=== PATIENT | male | born 1985 | race Hispanic/Latino ===

== ENCOUNTER 2018-06-25 08:23 | Inpatient (IN) | payer OTHER ==
--- NOTE | 2018-06-25 08:58 | C.PDOC ---
History Of Present Illness 32 years old male presents to ED stating that he inserted a dark janee plug in his rectum today and the handle broke off and he was unable to retrieve it. Denies bleeding, abdominal pain, nausea, or vomiting. Time Seen by Provider: 06/25/18 08:36 Chief Complaint (Nursing): Foreign Body History Per: Patient History/Exam Limitations: no limitations Onset/Duration Of Symptoms: Hrs Recent travel outside of the [place]: No Past Medical History Reviewed: Historical Data, Nursing Documentation, Vital Signs Vital Signs: Last Vital Signs Temp 97.7 F 06/25/18 08:27 Pulse 100 H 06/25/18 08:27 Resp 18 06/25/18 08:27 BP 126/87 06/25/18 08:27 Pulse Ox 98 06/25/18 08:27 - Medical History PMH: No Chronic Diseases Surgical History: No Surg Hx Family History: States: No Known Family Hx - Social History Hx Alcohol Use: Yes Hx Substance Use: Yes - Immunization History Hx Tetanus Toxoid Vaccination: No Hx Influenza Vaccination: No Hx Pneumococcal Vaccination: No Review Of Systems Constitutional: Negative for: Fever, Chills Gastrointestinal: Positive for: Other (sext toy stuck in rectum ). Negative for: Nausea, Vomiting, Abdominal Pain Skin: Negative for: Rash Neurological: Negative for: Weakness, Numbness Physical Exam - Physical Exam Appears: Non-toxic, No Acute Distress Skin: Normal Color, Warm, Dry, No Rash Head: Atraumatic, Normacephalic Eye(s): bilateral: Normal Inspection, PERRL, EOMI Oral Mucosa: Moist Neck: Normal ROM, Supple Chest: Symmetrical, No Tenderness Cardiovascular: Rhythm Regular Respiratory: Normal Breath Sounds, No Rales, No Rhonchi, No Wheezing Gastrointestinal/Abdominal: Soft, No Tenderness Rectal: No Hemorrhoids, Other (Foreign body palpated at 7cm aboce rectum. Unable to retrieve by manual pull. No bleeding. ) Extremity: Normal ROM Extremity: Bilateral: Atraumatic, Normal Color And Temperature, Normal ROM Pulses: Left Radial: Normal, Right Radial: Normal Neurological/Psych: Oriented x3, Normal Speech, Normal Motor, Normal Sensation Gait: Steady ED Course And Treatment - Laboratory Results Result Diagrams: 06/25/18 10:18 06/25/18 10:18 Lab Interpretation: No Acute Changes ECG: Interpreted By Me ECG Rhythm: Sinus Rhythm ECG Interpretation: No Acute Changes Rate From EC O2 Sat by Pulse Oximetry: 98 (RA) Pulse Ox Interpretation: Normal Medical Decision Making Medical Decision Making: Plan: * Pelvis X-Ray * Paged Nelson Miguel (GI director of clinical education). 9:29AM: * Spoke with Nelson Miguel who requested for patient to be admitted to medicine and will do colonoscopy today. Re-evaluation: * Patient states last water intake today was at 8AM. * Patient states he did not eat anything today. 9:40AM: * Spoke to Eusebia Downey (Medicine director of clinical education) who accepted the patient. Disposition Counseled Patient/Family Regarding: Studies Performed, Diagnosis - Disposition Disposition: HOSPITALIZED Disposition Time: 09:41 Condition: STABLE - Clinical Impression Clinical Impression: Rectal foreign body - PA / HOSPITALITY ASSOCIATE / Resident Statement MD/DO has reviewed & agrees with the documentation as recorded. - Scribe Statement The provider has reviewed the documentation as recorded by the Scribe Amanda Bustillos All medical record entries made by the Scribe were at my direction and personally dictated by me. I have reviewed the chart and agree that the record accurately reflects my personal performance of the history, physical exam, medical decision making, and the department course for this patient. I have also personally directed, reviewed, and agree with the discharge instructions and disposition. Decision To Admit - Pt Status Changed To: Hospital Disposition Of: SDS- Endo,OR,Cath,IR - . Bed Request Type: Same Day Surgery Admitting Physician: Rory Devlin Patient Diagnosis: Rectal foreign body
[2018-06-25] MEDS ORDERED: Sodium Chloride 0.9% 1,000 ML IV ONE (09:35)
[2018-06-25 10:26] LABS: BASO % 0.6 % (0.0-2.0); EOS % 0.6 % (0.0-4.0); HEMOGLOBIN 13.6 g/dL (12.0-18.0); LYMPH # 0.8 K/uL (1.0-4.3); LYMPH % 16.6 % (20.0-40.0); MEAN CELL VOLUME 91.7 fL (80.0-94.0); MEAN CORPUSCULAR HEMOGLOBIN 32.2 pg (27.0-31.0); MEAN CORPUSCULAR HGB CONC 35.2 g/dL (33.0-37.0); MEAN PLATELET VOLUME 7.4 fL (7.2-11.7); MONO # 0.4 K/uL (0.0-0.8); MONO % 7.5 % (0.0-10.0); NEUT # 3.6 K/uL (1.8-7.0); NEUT % 74.7 % (50.0-75.0); NRBC % 0.1 % (0.0-2.0); RBC 4.21 Mil/uL (4.40-5.90); RED CELL DISTRIBUTION WIDTH 12.3 % (11.5-14.5); WHITE BLOOD COUNT 4.8 K/uL (4.8-10.8)
[2018-06-25 10:35] LABS: INR 1.1; PROTHROMBIN TIME 11.6 SECONDS (9.7-12.2)
[2018-06-25 10:57] LABS: ALB/GLOB RATIO 2.1 (1.0-2.1); ALBUMIN 4.6 g/dL (3.5-5.0); ALT/SGPT 23 U/L (21-72); AST/SGOT 32 U/L (17-59); BLOOD UREA NITROGEN 13 mg/dL (9-20); CALCIUM 8.9 mg/dl (8.6-10.4); GFR NON-AFRICAN AMERICAN > 60
[2018-06-25] MEDS ORDERED: Propofol 10 mg/ml Inj (20 ML) ONE ×3 (11:01→14:38)
[2018-06-25] MEDS ORDERED: Midazolam 2 MG/2 ML VIAL ONE ×2 (11:16→14:37)
--- NOTE | 2018-06-25 11:46 | CP.PCM.CON ---
History of Present Illness - History of Present Illness History of Present Illness: This is a 32 year old man with rectal foreign body. Patient inserted a sex toy shaped as a ball with a triangle on top in to the rectum this morning. The handle broke off, and the ball remained in the rectum. He denied having nausea, vomiting, abdominal pain, rectal bleeding on admissioin. Review of Systems - Constitutional Constitutional: absent: Chills, Fever - Gastrointestinal Gastrointestinal: absent: Abdominal Pain, Hematochezia, Nausea, Vomiting Past Patient History - Past Social History Smoking Status: Never Smoked - PSYCHIATRIC Hx Substance Use: Yes - SURGICAL HISTORY Hx Surgeries: No Meds Allergies/Adverse Reactions: Allergies Allergy/AdvReac Type Severity Reaction Status Date / Time No Known Allergies Allergy Verified 06/25/18 08:29 Physical Exam - Constitutional Appears: No Acute Distress - Head Exam Head Exam: ATRAUMATIC, NORMOCEPHALIC - Neck Exam Neck exam: Negative for: Lymphadenopathy, Thyromegaly - Respiratory Exam Respiratory Exam: NORMAL BREATHING PATTERN. absent: Rales, Rhonchi, Wheezes - Cardiovascular Exam Cardiovascular Exam: REGULAR RHYTHM, +S1, +S2. absent: Gallop, Rubs, Systolic Murmur - GI/Abdominal Exam GI & Abdominal Exam: Normal Bowel Sounds, Soft. absent: Mass, Organomegaly, Tenderness - Rectal Exam Rectal Exam: Deferred - Extremities Exam Extremities exam: Negative for: calf tenderness, pedal edema Results - Vital Signs Recent Vital Signs: Last Vital Signs Temp 98.2 F 06/25/18 10:56 Pulse 68 06/25/18 10:56 Resp 16 06/25/18 10:56 BP 116/77 06/25/18 10:56 Pulse Ox 100 06/25/18 10:56 - Labs Result Diagrams: 06/25/18 10:18 06/25/18 10:18 Labs: Laboratory Results - last 24 hr 06/25/18 06/25/18 06/25/18 10:18 10:18 10:18 WBC 4.8 RBC 4.21 L Hgb 13.6 Hct 38.6 MCV 91.7 MCH 32.2 H MCHC 35.2 RDW 12.3 Plt Count 199 MPV 7.4 Neut % (Auto) 74.7 Lymph % (Auto) 16.6 L [place] % (Auto) 7.5 Eos % (Auto) 0.6 Baso % (Auto) 0.6 Neut # (Auto) 3.6 Lymph # (Auto) 0.8 L [place] # (Auto) 0.4 Eos # (Auto) 0.0 Baso # (Auto) 0.0 PT 11.6 INR 1.1 APTT 30 Sodium 139 Potassium 4.0 Chloride 103 Carbon Dioxide 25 Anion Gap 15 BUN 13 Creatinine 0.8 Est GFR ( Amer) > 60 Est GFR (Non-Af Amer) > 60 Random Glucose 91 Calcium 8.9 Total Bilirubin 1.3 AST 32 ALT 23 Alkaline Phosphatase 21 L Total Protein 6.7 Albumin 4.6 Globulin 2.2 Albumin/Globulin Ratio 2.1 Assessment & Plan (1) Rectal foreign body Assessment and Plan: Patient has a rectal foreign body. Will attempt removal by colonoscopy. Status: Acute
--- NOTE | 2018-06-25 13:03 | CP.PCM.CON ---
History of Present Illness - History of Present Illness History of Present Illness: General surgery progress note for Dr. Bhat Pt is a 32M who denies any PMH or PSH who states that this AM patient and his inserted a black, rubber rectal dilator into his rectum, and the handle to retrieve the dilator broke off. Pt tried to digitally remove the object, but was unable to do so, so he came to the ER. GI was consulted and attempted a removal via colonoscopy, which was unsuccessful. Patient was examined approximately 4 hours after insertion. He reports an extreme urge to defecate, but no rectal or abdominal pain, no bleeding per rectum, no fevers, chills, chest pain, nausea, or vomiting. Patient denies any personal or family history of GI issues and has never had a colonoscopy. Last BM was this AM just prior to object insetion and it was normal in caliber and color, no melena or hematochezia PMH: denies PSH: denies ALL: denies social: daily inhaled marijuana use, denies smoking, occasional ETOH Review of Systems - Review of Systems All systems: reviewed and no additional remarkable complaints except (as per HPI) Past Patient History - Past Medical History & Family History Past Medical History?: Yes Past Family History: Reviewed and not pertinent - Past Social History Smoking Status: Never Smoked Alcohol: Occasional Drugs: Cannabis Home Situation {Lives}: With Family - PSYCHIATRIC Hx Substance Use: Yes - SURGICAL HISTORY Hx Surgeries: No Meds Allergies/Adverse Reactions: Allergies Allergy/AdvReac Type Severity Reaction Status Date / Time No Known Allergies Allergy Verified 06/25/18 08:29 - Medications Medications: Current Medications Lactated Ringer's (Lactated Ringer's) 1,000 mls @ 125 mls/hr IV .Q8H [facility] Morphine Sulfate (Morphine) 2 mg IVP Q4 PRN PRN Reason: Pain, moderate (4-7) Physical Exam - Constitutional Appears: Well, Non-toxic, No Acute Distress - Head Exam Head Exam: ATRAUMATIC, NORMOCEPHALIC - Eye Exam Eye Exam: Normal appearance. absent: Conjunctival injection, Scleral icterus - ENT Exam ENT Exam: Mucous Membranes Moist, Normal Oropharynx - Respiratory Exam Respiratory Exam: NORMAL BREATHING PATTERN. absent: Accessory Muscle Use, Respiratory Distress - Cardiovascular Exam Cardiovascular Exam: RRR - GI/Abdominal Exam GI & Abdominal Exam: Soft. absent: Distended, Rebound, Tenderness - Rectal Exam Additional comments: No active external bleeding, no external lesions, normal sphinter tone, round object palpated approximately 5cm from the anal verge, unable to be retracted, small amount of gross blood on the glove - Extremities Exam Extremities exam: Positive for: pedal pulses present. Negative for: calf tenderness, pedal edema - Neurological Exam Neurological exam: Alert, Oriented x3 - Psychiatric Exam Psychiatric exam: Normal Affect, Normal Mood - Skin Skin Exam: Dry, Normal Color, Warm Results - Vital Signs Recent Vital Signs: Last Vital Signs Temp 97 F L 06/25/18 12:45 Pulse 60 06/25/18 12:45 Resp 17 06/25/18 12:45 BP 115/71 06/25/18 12:45 Pulse Ox 100 06/25/18 12:45 - Labs Result Diagrams: 06/25/18 10:18 06/25/18 10:18 Labs: Laboratory Results - last 24 hr 06/25/18 06/25/18 06/25/18 10:18 10:18 10:18 WBC 4.8 RBC 4.21 L Hgb 13.6 Hct 38.6 MCV 91.7 MCH 32.2 H MCHC 35.2 RDW 12.3 Plt Count 199 MPV 7.4 Neut % (Auto) 74.7 Lymph % (Auto) 16.6 L [place] % (Auto) 7.5 Eos % (Auto) 0.6 Baso % (Auto) 0.6 Neut # (Auto) 3.6 Lymph # (Auto) 0.8 L [place] # (Auto) 0.4 Eos # (Auto) 0.0 Baso # (Auto) 0.0 PT 11.6 INR 1.1 APTT 30 Sodium 139 Potassium 4.0 Chloride 103 Carbon Dioxide 25 Anion Gap 15 BUN 13 Creatinine 0.8 Est GFR ( Amer) > 60 Est GFR (Non-Af Amer) > 60 Random Glucose 91 Calcium 8.9 Total Bilirubin 1.3 AST 32 ALT 23 Alkaline Phosphatase 21 L Total Protein 6.7 Albumin 4.6 Globulin 2.2 Albumin/Globulin Ratio 2.1 Blood Type Antibody Screen 06/25/18 10:18 WBC RBC Hgb Hct MCV MCH MCHC RDW Plt Count MPV Neut % (Auto) Lymph % (Auto) [place] % (Auto) Eos % (Auto) Baso % (Auto) Neut # (Auto) Lymph # (Auto) [place] # (Auto) Eos # (Auto) Baso # (Auto) PT INR APTT Sodium Potassium Chloride Carbon Dioxide Anion Gap BUN Creatinine Est GFR ( Amer) Est GFR (Non-Af Amer) Random Glucose Calcium Total Bilirubin AST ALT Alkaline Phosphatase Total Protein Albumin Globulin Albumin/Globulin Ratio Blood Type A POSITIVE Antibody Screen Negative - Imaging and Cardiology Abdominal x-ray Status: Image reviewed by me, Report reviewed by me Chest x-ray Status: Image reviewed by me, Report reviewed by me CT scan - abdomen Status: Image reviewed by me, Report reviewed by me Assessment & Plan - Assessment and Plan (Free Text) Assessment: 32M with retained foreign body in the rectum Plan: OR for EUA and attempted removal of foreign body NPO IVF PRN pain and nausea medication IV antibiotics Discussed with Dr. Perlita Zarate, PGY2
--- NOTE | 2018-06-25 13:54 | CT ---
Date of service: 06/25/2018 PROCEDURE: CT Abdomen and Pelvis with Oral contrast. HISTORY: Rectal foreign body COMPARISON: None. TECHNIQUE: Contiguous axial images of the abdomen and this without oral or IV contrast. Coronal and Sagittal reformats generated. Radiation dose: Total exam DLP = 289.13 mGy-cm. This CT exam was performed using one or more of the following dose reduction techniques: Automated exposure control, adjustment of the mA and/or kV according to patient size, and/or use of iterative reconstruction technique. FINDINGS: LOWER THORAX: Unremarkable. LIVER: Unremarkable. No gross lesion or ductal dilatation. GALLBLADDER AND BILE DUCTS: Unremarkable. PANCREAS: Unremarkable. No mass. No ductal dilatation. SPLEEN: Unremarkable. No splenomegaly. ADRENALS: Unremarkable. KIDNEYS AND URETERS: Unremarkable. No stone or hydronephrosis. BLADDER: Grossly unremarkable. REPRODUCTIVE: Unremarkable. APPENDIX: Unremarkable. BOWEL: Evaluation of the bowel is somewhat limited due to the lack of oral contrast material. There is a somewhat peanut shaped radiolucent (fat like attenuation pattern with Hounsfield units registering in the negative 90s) foreign body within the rectum and distal sigmoid region that measures approximately 9.4 x 4.5 cm in greatest CC and transverse dimension.. Stomach is collapsed. Visualized loops of small bowel exhibit normal contour and caliber. No evidence of acute mechanical small bowel obstruction. PERITONEUM: Unremarkable. No fluid collection. No free air. LYMPH NODES: Unremarkable. No enlarged lymph nodes. VASCULATURE: Unremarkable. No aortic aneurysm. No aortic atherosclerotic calcification or mural plaque present. BONES: No fracture or destructive lesion. OTHER FINDINGS: None. IMPRESSION: There is a somewhat peanut shaped radiolucent (fat like attenuation pattern with Hounsfield units registering in the negative 90s) foreign body within the rectum and distal sigmoid region that measures approximately 9.4 x 4.5 cm in greatest CC and transverse dimension... No evidence of free intraperitoneal air.. No of free or loculated fluid collections. No obvious pneumatosis. These findings discussed with Dr. Dale at approximately 1:45 p.m. with written down and read back verification.
--- NOTE | 2018-06-25 14:11 | RAD ---
Date of service: 06/25/2018 HISTORY: pre-op COMPARISON: None available. FINDINGS: LUNGS: No active pulmonary disease. PLEURA: No significant pleural effusion identified, no pneumothorax apparent. CARDIOVASCULAR: No aortic atherosclerotic calcification present. Normal cardiac size. No pulmonary vascular congestion. OSSEOUS STRUCTURES: No significant abnormalities. VISUALIZED UPPER ABDOMEN: Normal. OTHER FINDINGS: None. IMPRESSION: No active disease.
--- NOTE | 2018-06-25 14:12 | RAD ---
Date of service: 06/25/2018 PROCEDURE: Radiographs of the pelvis. HISTORY: RECTAL FB COMPARISON: None. FINDINGS: BONES: Pelvic Bones: Unremarkable. Hips: Grossly unremarkable. JOINTS: Sacroiliac Joints: Unremarkable. Pubic Symphysis: Unremarkable. OTHER FINDINGS: There is a rounded approximately 5.9 cm radiolucent the focus seen overlying the mid inferior half of the true pelvis that could represent a foreign body. Follow-up of CT scan of the pelvis recommended IMPRESSION: Suspect radiolucent foreign body overlying the mid inferior half of the true pelvis. Follow-up CT scan recommended
--- NOTE | 2018-06-25 14:17 | CP.PCM.HP ---
Past Patient History - Past Social History Smoking Status: Never Smoked - PSYCHIATRIC Hx Substance Use: Yes - SURGICAL HISTORY Hx Surgeries: No Meds Allergies/Adverse Reactions: Allergies Allergy/AdvReac Type Severity Reaction Status Date / Time No Known Allergies Allergy Verified 06/25/18 08:29 Physical Exam - Constitutional Appears: Well - Head Exam Head Exam: ATRAUMATIC, NORMAL INSPECTION, NORMOCEPHALIC - Eye Exam Eye Exam: EOMI, Normal appearance, PERRL Pupil Exam: NORMAL ACCOMODATION, PERRL - ENT Exam ENT Exam: Mucous Membranes Moist, Normal Exam - Neck Exam Neck exam: Positive for: Normal Inspection - Respiratory Exam Respiratory Exam: Decreased Breath Sounds - Cardiovascular Exam Cardiovascular Exam: REGULAR RHYTHM, +S1, +S2 - GI/Abdominal Exam GI & Abdominal Exam: Diminished Bowel Sounds, Soft - Rectal Exam Rectal Exam: Deferred Results - Vital Signs Recent Vital Signs: Last Vital Signs Temp 97 F L 06/25/18 12:45 Pulse 60 06/25/18 12:45 Resp 17 06/25/18 12:45 BP 115/71 06/25/18 12:45 Pulse Ox 98 06/25/18 14:06 - Labs Result Diagrams: 06/25/18 10:18 06/25/18 10:18 Labs: Laboratory Results - last 24 hr 06/25/18 06/25/18 06/25/18 10:18 10:18 10:18 WBC 4.8 RBC 4.21 L Hgb 13.6 Hct 38.6 MCV 91.7 MCH 32.2 H MCHC 35.2 RDW 12.3 Plt Count 199 MPV 7.4 Neut % (Auto) 74.7 Lymph % (Auto) 16.6 L [place] % (Auto) 7.5 Eos % (Auto) 0.6 Baso % (Auto) 0.6 Neut # (Auto) 3.6 Lymph # (Auto) 0.8 L [place] # (Auto) 0.4 Eos # (Auto) 0.0 Baso # (Auto) 0.0 PT 11.6 INR 1.1 APTT 30 Sodium 139 Potassium 4.0 Chloride 103 Carbon Dioxide 25 Anion Gap 15 BUN 13 Creatinine 0.8 Est GFR ( Amer) > 60 Est GFR (Non-Af Amer) > 60 Random Glucose 91 Calcium 8.9 Total Bilirubin 1.3 AST 32 ALT 23 Alkaline Phosphatase 21 L Total Protein 6.7 Albumin 4.6 Globulin 2.2 Albumin/Globulin Ratio 2.1 Blood Type Antibody Screen 06/25/18 10:18 WBC RBC Hgb Hct MCV MCH MCHC RDW Plt Count MPV Neut % (Auto) Lymph % (Auto) [place] % (Auto) Eos % (Auto) Baso % (Auto) Neut # (Auto) Lymph # (Auto) [place] # (Auto) Eos # (Auto) Baso # (Auto) PT INR APTT Sodium Potassium Chloride Carbon Dioxide Anion Gap BUN Creatinine Est GFR ( Amer) Est GFR (Non-Af Amer) Random Glucose Calcium Total Bilirubin AST ALT Alkaline Phosphatase Total Protein Albumin Globulin Albumin/Globulin Ratio Blood Type A POSITIVE Antibody Screen Negative
[2018-06-25] MEDS ORDERED: ceFAZolin IV 1 gm in Dextrose 2 GM/100 ML BAG IVPB ONE (14:33)
[2018-06-25] MEDS ORDERED: metroNIDAZOLE IV 500 mg/100 ml 500 MG/100 ML BAG ONE (14:33)
[2018-06-25] MEDS ORDERED: Succinylcholine Chloride 20 mg/ml Syr (5 ml) IV ONE (14:57)
[2018-06-25] MEDS ORDERED: Oxycodone/Acetaminophen 5/325 mg Tab PO PRN (15:15)
[2018-06-25] MEDS ORDERED: HYDROmorphone 0.5 mg/0.5 ml ISec IVP PRN (15:16)
--- NOTE | 2018-06-25 15:22 | PCM.SURG1 ---
Surgeon's Initial Post Op Note - Surgeon's Notes Surgeon: Dr. Bhat Sales Operations Associate: Lelo Zarate, PGY2 Type of Anesthesia: General Endo Anesthesia Administered By: Dr. Davis Pre-Operative Diagnosis: retained foreign object in the rectum Operative Findings: intact large black rubber anal dilator removed from rectum, no evident rectal mucosal tear Post-Operative Diagnosis: same Operation Performed: Examination under anesthesia, removal of foreign body from rectum Specimen/Specimens Removed: anal dilator Estimated Blood Loss: EBL {In ML}: 10 Date of Surgery/Procedure: 06/25/18 Time of Surgery/Procedure: 14:30
[2018-06-25] MEDS ORDERED: Lactated Ringer's 1,000 ML IV SCH (15:30)
[2018-06-25] MEDS: Piperacill/Tazo 3.375gm in Dex 3.375 GM/50 ML BAG IVPB SCH ×3 (15:55→21:36)
[2018-06-25] MEDS ORDERED: Lactated Ringer's 1,000 ML IV ONE (16:10)
[2018-06-25] MEDS: Lactated Ringer's 1,000 ML IV SCH ×2 (20:08→21:37)
[2018-06-26] MEDS: Lactated Ringer's 1,000 ML IV SCH ×2 (03:15→05:15)
[2018-06-26 04:26] VITALS: RESP 20
[2018-06-26] MEDS: Piperacill/Tazo 3.375gm in Dex 3.375 GM/50 ML BAG IVPB SCH ×3 (04:31→16:34)
--- NOTE | 2018-06-26 09:49 | CP.PCM.PN ---
Subjective - Date & Time of Evaluation Date of Evaluation: 06/26/18 Time of Evaluation: 09:15 - Subjective Subjective: The rectal foreign body was removed under general anesthesia by the surgical team yesterday. Today, patient denies having nausea, vomiting, abdominal pain, rectal bleeding. He is tolerating a liquid diet. Objective - Vital Signs/Intake and Output Vital Signs (last 24 hours): Temp Pulse Resp BP Pulse Ox 98.2 F 57 L 20 108/70 99 06/26/18 07:00 06/26/18 07:00 06/26/18 07:00 06/26/18 07:00 06/26/18 07:00 - Medications Medications: Current Medications Lactated Ringer's (Lactated Ringer's) 1,000 mls @ 125 mls/hr IV .Q8H LINDA Last Admin: 06/26/18 05:15 Dose: Not Given Piperacillin Sod/Tazobactam Sod (Zosyn 3.375 Gm Iv Premix) 3.375 gm in 50 mls @ 100 mls/hr IVPB Q6H LINDA; Protocol Last Admin: 06/26/18 09:43 Dose: 100 mls/hr Ibuprofen (Motrin Tab) 600 mg PO Q6H PRN PRN Reason: Pain, Mild (1-3) Influenza Virus Vaccine (Fluzone Quad [id number]) 60 mcg IM .ONCE ONE Stop: 06/26/18 10:01 Ondansetron HCl (Zofran Inj) 4 mg IVP DAILY@ONCE PRN PRN Reason: Nausea/Vomiting Oxycodone/Acetaminophen (Percocet 5/325 Mg Tab) 1 tab PO Q4H PRN PRN Reason: Pain, moderate (4-7) Stop: 06/28/18 15:16 Pneumococcal Polyvalent Vaccine (Pneumovax 23 Vaccine) 0.5 ml IM .ONCE ONE Stop: 06/26/18 10:01 - Labs Labs: 06/25/18 10:18 06/25/18 10:18 PT 11.6 SECONDS (9.7-12.2) 06/25/18 10:18 INR 1.1 06/25/18 10:18 APTT 30 SECONDS (21-34) 06/25/18 10:18 - Constitutional Appears: No Acute Distress - Head Exam Head Exam: ATRAUMATIC, NORMOCEPHALIC - Eye Exam Eye Exam: EOMI, PERRL - Neck Exam Neck Exam: absent: Lymphadenopathy, Thyromegaly - Respiratory Exam Respiratory Exam: NORMAL BREATHING PATTERN. absent: Rales, Rhonchi, Wheezes - Cardiovascular Exam Cardiovascular Exam: REGULAR RHYTHM, +S1, +S2. absent: Gallop, Rubs, Murmur - GI/Abdominal Exam GI & Abdominal Exam: Soft, Normal Bowel Sounds. absent: Tenderness, Mass, Organomegaly - Rectal Exam Rectal Exam: Deferred - Extremities Exam Extremities Exam: absent: Calf Tenderness, Pedal Edema Assessment and Plan (1) Rectal foreign body Assessment & Plan: Patient is status post EUA and removal of rectal foreign body yesterday. Recommend office follow up as needed. Status: Acute
[2018-06-26] MEDS ORDERED: Influenza Vaccine 60 MCG/0.5 ML SYR (3 yr & up) IM ONE (10:00)
[2018-06-26] MEDS ORDERED: Pneumococcal 23-Valent Vaccine IM ONE (10:00)
--- NOTE | 2018-06-26 11:06 | CP.PCM.PN ---
Subjective - Date & Time of Evaluation Date of Evaluation: 06/26/18 Time of Evaluation: 08:00 - Subjective Subjective: Surgery: Dr. Bhat Pt seen and examined. No acute overnight events. States he feels well this AM and denies abdominal pain. Admits to some rectal pain but otherwise no complaints. Tolerating diet, denies nausea/vomiting, fevers/chills. Objective - Vital Signs/Intake and Output Vital Signs (last 24 hours): Temp Pulse Resp BP Pulse Ox 98.2 F 57 L 20 108/70 99 06/26/18 07:00 06/26/18 07:00 06/26/18 07:00 06/26/18 07:00 06/26/18 07:00 - Medications Medications: Current Medications Piperacillin Sod/Tazobactam Sod (Zosyn 3.375 Gm Iv Premix) 3.375 gm in 50 mls @ 100 mls/hr IVPB Q6H LINDA; Protocol Last Admin: 06/26/18 09:43 Dose: 100 mls/hr Ibuprofen (Motrin Tab) 600 mg PO Q6H PRN PRN Reason: Pain, Mild (1-3) Ondansetron HCl (Zofran Inj) 4 mg IVP DAILY@ONCE PRN PRN Reason: Nausea/Vomiting Oxycodone/Acetaminophen (Percocet 5/325 Mg Tab) 1 tab PO Q4H PRN PRN Reason: Pain, moderate (4-7) Stop: 06/28/18 15:16 - Labs Labs: 06/25/18 10:18 06/25/18 10:18 PT 11.6 SECONDS (9.7-12.2) 06/25/18 10:18 INR 1.1 06/25/18 10:18 APTT 30 SECONDS (21-34) 06/25/18 10:18 - Constitutional Appears: Well, No Acute Distress - Head Exam Head Exam: ATRAUMATIC, NORMOCEPHALIC - Eye Exam Eye Exam: Normal appearance - ENT Exam ENT Exam: Mucous Membranes Moist - Respiratory Exam Respiratory Exam: NORMAL BREATHING PATTERN - Cardiovascular Exam Cardiovascular Exam: RRR - GI/Abdominal Exam GI & Abdominal Exam: Soft. absent: Tenderness - Extremities Exam Extremities Exam: absent: Calf Tenderness - Neurological Exam Neurological Exam: Alert, Awake, Oriented x3 - Skin Skin Exam: Dry, Warm Assessment and Plan - Assessment and Plan (Free Text) Assessment: 32M s/p removal of foreign body from rectum; POD#1 Plan: - ok to DC from surgical standpoint - pain meds/stool softners PRN - d/w Dr. Perlita Parnell
--- NOTE | 2018-06-26 12:54 | RAD ---
Date of service: 06/26/2018 HISTORY: S/P EUA retrieval of retained rectal foreign body COMPARISON: CT abdomen and pelvis 06/25/2018. FINDINGS: BOWEL: Is moderate amount of stool in the colon. The bowel gas pattern is nonspecific. No differential air-fluid levels. No free intraperitoneal air. There is no radiopaque foreign body in the rectum. BONES: Normal. OTHER FINDINGS: None. IMPRESSION: Nonobstructive bowel-gas pattern. No radiopaque foreign body in the rectum.
[2018-06-26 17:28] VITALS: BP 111/72; PULSE 58; TEMP 98.5; O2SAT 98
--- NOTE | 2018-06-26 18:08 | CP.PCM.PN ---
Subjective - Date & Time of Evaluation Date of Evaluation: 06/26/18 Time of Evaluation: 12:00 - Subjective Subjective: Clinically same Objective - Vital Signs/Intake and Output Vital Signs (last 24 hours): Temp Pulse Resp BP Pulse Ox 98.5 F 58 L 20 111/72 98 06/26/18 15:05 06/26/18 15:05 06/26/18 15:05 06/26/18 15:05 06/26/18 15:05 - Labs Labs: 06/25/18 10:18 06/25/18 10:18 PT 11.6 SECONDS (9.7-12.2) 06/25/18 10:18 INR 1.1 06/25/18 10:18 APTT 30 SECONDS (21-34) 06/25/18 10:18 - Constitutional Appears: Well - Head Exam Head Exam: ATRAUMATIC, NORMAL INSPECTION, NORMOCEPHALIC - Eye Exam Eye Exam: EOMI, Normal appearance, PERRL Pupil Exam: NORMAL ACCOMODATION, PERRL - ENT Exam ENT Exam: Mucous Membranes Moist, Normal Exam - Neck Exam Neck Exam: Full ROM, Normal Inspection. absent: Lymphadenopathy - Respiratory Exam Respiratory Exam: Decreased Breath Sounds - Cardiovascular Exam Cardiovascular Exam: REGULAR RHYTHM, +S1, +S2 - GI/Abdominal Exam GI & Abdominal Exam: Soft, Diminished Bowel Sounds - Rectal Exam Rectal Exam: Deferred
--- NOTE | 2018-06-27 06:19 | OP ---
PROCEDURE DATE: 06/25/2018 PREOPERATIVE DIAGNOSES: 1. Rectal foreign body. 2. Failed colonoscopic retrieval of rectal foreign body. 3. Rectal pain. POSTOPERATIVE DIAGNOSES: 1. Rectal foreign body. 2. Failed colonoscopic retrieval of rectal foreign body. 3. Rectal pain. PROCEDURE: 1. Examination under anesthesia of anus and rectum. 2. Removal of the rectal foreign body. SURGEON: Kurt Bhat MD. TREE MARKER: Lelo Zarate, PGY-3 Resident. TYPE OF ANESTHESIA: General endotracheal tube anesthesia. ESTIMATED BLOOD LOSS: Around 10 mL. DRAINS: None. PATHOLOGY: The rectal foreign body was sent to Pathology. COMPLICATIONS: None. INTRAOPERATIVE FINDINGS: The patient had mesorectal foreign body with large bulb as well as the triangular tip. DESCRIPTION OF PROCEDURE: On intraoperative steps, this 32-year-old male was diagnosed with rectal foreign body and the patient had a failed colonoscopic retrieval and Surgery was consulted. The patient was seen and examined at the bedside. The patient had preoperative CAT scan done, that was suggestive of rubber foreign body in the rectum and the patient was consented for the EUA plus removal of the foreign body plus possible ex-lap. The patient was brought to the OR, placed upon the operating table. After induction of anesthesia, the patient was placed in a lithotomy position. Abdomen as well as the perineal area were prepped and draped in usual sterile fashion. Under anesthesia, close examination of the rectum as well as the anal canal was done and patient was found to have large bulb in the mid rectum area. First, the Mahin syringe was used with saline to lubricate the rectum completely and after that the tenaculum was used to grab the bulb and the bulb with triangular portion was taken out completely and another examination under anesthesia was done to find any retained foreign body. There was no foreign body identified after removal of the original foreign body as well as their was no tear in the rectal mucosa or any other abnormality identified. After that, the Surgicel packing was placed and the dry sterile dressing was applied. The patient tolerated the procedure well. The patient was extubated in OR. Counts of instrument and gauze were correct. There were no apparent complications. The patient was sent to the postanesthesia care unit in stable condition. Kurt Bhat MD [facility] # [id number]
== END 2018-06-26 17:48 | disposition home or self-care (01) | DRG 395 ==
LOC: C.ER 08:23 → C.SDS 09:40 → C.6T 11:34
PROVIDERS: ADMIT Internal Medicine Nephrology; ATTEND Internal Medicine Nephrology
PROC: 0DJD8ZZ Inspection of Lower Intestinal Tract, Via Natural or Artificial Opening Endoscopic (ICD-10-PCS; 2018-06-25)
PROC: 0DCP7ZZ Extirpation of Matter from Rectum, Via Natural or Artificial Opening (ICD-10-PCS; principal; 2018-06-25 11:15)
DX: T18.5XXA Foreign body in anus and rectum, initial encounter (principal); F12.90 Cannabis use, unspecified, uncomplicated; K62.89 Other specified diseases of anus and rectum